=== PATIENT | female | born 1965 | race Caucasian/White ===

== ENCOUNTER 2016-11-17 01:12 | Observation (INO) | payer OTHER ==
[~2016-11-17] VITALS: Ht 157.5 cm; Wt 135.3 kg
[~2016-11-17 01:12] MED LIST: ALAVERT10 MG PO; ALBUTEROL2.5 MG/3 M IH; AMITRIPTYLINE H10 MG PO; ATROVENT 00.5 MG/2.5 IH; AVENTYL,PAMELOR50 MG PO; Antivert PO; BENADRYL25 MG PO; BENTYL10 MG PO; Bactrim,Septra DS 80 PO; Bentyl PO; CALAN80 MG PO; CELEBREX200 MG PO; CELEXA10 MG PO; CELEXA20 MG PO; CLARITIN10 M3 PO; DULERA 100 MCG/13 GM; DULERA 100 MCG/13 GM IH; ESZOPICLONE3 MG PO; FIORICET 50-301 EACH PO; Flagyl PO; IPRATROPIU0.2 MG/1 M IH; IRON325 M1 PO; IRON325 MG PO; LOTRISONE15 GM TP; MAXALT10 MG PO; METAXALONE800 MG PO; METOPROLOL TART25 MG PO; MONTELUKAST SOD10 MG PO; MOTRIN800 MG PO; NORCO 5/3251 TABLET PO; NORTRIPTYLINE H25 MG PO; NORTRIPTYLINE H50 MG PO; PANTOPRAZOLE SO40 MG; PATANASE30.5 GM; PATANASE30.5 GM BOTH NARES; PATANASE30.5 GM NS; PERCOCET 5/31 TABLET PO; POLYETHYLENE GL17 GM PO; PRAVACHOL40 MG PO; PRAVASTATIN SOD40 MG PO; PROTONIX40 MG PO; PROVENTIL,2.5 MG/3 M IH; PROVENTIL2.5 MG/3 M IH; RIZATRIPTAN10 MG; ROXICET 5-3251 EACH PO; SINGULAIR10 MG PO; STOOL SOFTENER100 MG PO; SUCRALFATE1 GM/10 ML PO; SYMBICORT60 INHALAT IH; Singulair PO; TIZANIDINE HCL2 M1 PO; TOPAMAX100 MG PO; TOPIRAMATE100 MG PO; TUMS500 MG PO; Topamax PO; VENTOLIN HFA18 GM IH; VERAPAMIL HCL240 MG PO; VERAPAMIL HCL80 MG PO; VITAMIN D31000 UNIT PO; WOMEN'S DAILY1 EAC2 PO; ZITHROMAX Z-PA250 MG PO; [UNRECOGNIZED DRUG - REMARK]; iron PO
[2016-11-17 02:49] LABS: HEMATOCRIT 42.4 % (36.0-46.0); MCH 29.2 PG (29.0-34.0); MCHC 32.1 G/DL (30.0-36.0); MEAN PLAT.VOLUME 9.1 uM^3 (9.5-12.4); PLATELET COUNT 280 K/uL (156-360); RBC DIS.WIDTH-CV 12.6 % (11.8-14.6); RBC DIS.WIDTH-SD 41.7 % (39-53); RED BLOOD COUNT 4.66 M/uL (3.80-5.20); WHITE BLOOD COUNT 8.2 K/uL (4.1-10.2)
[2016-11-17 03:10] LABS: CHLORIDE 109 mEq/L (99-109); POTASSIUM 4.1 mEq/L (3.7-5.4); SODIUM 144 mEq/L (136-147)
[2016-11-17 03:11] LABS: GLUCOSE 81 mg/dL (70-99)
[2016-11-17 03:13] LABS: ANION GAP 12 MEQ/L (2-14); TROP-I INTERPRETATION NEGATIVE; TROPONIN-I < 0.01 ng/mL (0.0-0.30)
[2016-11-17 03:15] LABS: GFR ESTIMATE (CALCULATED) > 59 mL/min/
[2016-11-17 03:16] LABS: UREA NITROGEN (BUN) 16 mg/dL (9-23)
[2016-11-17 04:45] LABS: D-DIMER ELISA 0.38 mg/L FEU (< 0.57)
[2016-11-17 07:36] VITALS: BP 127/83
[2016-11-17 08:30] LABS: Estimated Average Glucose 114 mg/dL (70-123); HEMOGLOBIN A1c (GLYCOHEMOGLOB) 5.6 % HGB (Below 5.7)
[2016-11-17 09:41] LABS: TROP-I INTERPRETATION NEGATIVE; TROPONIN-I < 0.01 ng/mL (0.0-0.30)
[2016-11-17 11:22] VITALS: BP 113/68
[2016-11-17] MEDS ORDERED: LO-DOSE ASPIRIN81 M2 PO (15:03)
[2016-11-17 15:58] LABS: TROP-I INTERPRETATION NEGATIVE; TROPONIN-I < 0.01 ng/mL (0.0-0.30)
[2016-11-17 16:00] VITALS: BP 152/82
== END 2016-11-17 16:20 | disposition home or self-care (01) ==
LOC: EME 01:12 → EDOF 06:12 → 5WEST 07:26
PROVIDERS: Internal Medicine; Nurse Practitioner Family
DX: R07.89 Other chest pain (principal); I10 Essential (primary) hypertension; J45.909 Unspecified asthma, uncomplicated; G47.33 Obstructive sleep apnea (adult) (pediatric); Z68.43 Body mass index [BMI] 50.0-59.9, adult; E66.01 Morbid (severe) obesity due to excess calories; E78.5 Hyperlipidemia, unspecified
CPT/HCPCS: 71020; 80048; 83036; 84439; 84443; 84484; 85027; 85379; 93005; 99281; 99284; G0378

== ENCOUNTER 2016-11-19 19:47 | Observation (INO) | payer OTHER ==
[~2016-11-19] VITALS: Ht 157.5 cm; Wt 134.1 kg
[~2016-11-19 19:47] MED LIST changes: +LO-DOSE ASPIRIN81 M2 PO
[2016-11-19 20:06] LABS: HEMATOCRIT 42.9 % (36.0-46.0); MCH 29.5 PG (29.0-34.0); MCHC 32.6 G/DL (30.0-36.0); MCV 90.3 FL (83-99); MEAN PLAT.VOLUME 9.1 uM^3 (9.5-12.4); PLATELET COUNT 262 K/uL (156-360); RBC DIS.WIDTH-CV 12.3 % (11.8-14.6); RBC DIS.WIDTH-SD 40.6 % (39-53); RED BLOOD COUNT 4.75 M/uL (3.80-5.20)
[2016-11-19 20:17] LABS: CHLORIDE 109 mEq/L (99-109); POTASSIUM 3.9 mEq/L (3.7-5.4); SODIUM 140 mEq/L (136-147)
[2016-11-19 20:20] LABS: ANION GAP 12 MEQ/L (2-14)
[2016-11-19 20:23] LABS: GFR ESTIMATE (CALCULATED) > 59 mL/min/
[2016-11-19 20:24] LABS: GLUCOSE 122 mg/dL (70-99); UREA NITROGEN (BUN) 11 mg/dL (9-23)
[2016-11-19 20:27] LABS: TROP-I INTERPRETATION NEGATIVE; TROPONIN-I < 0.01 ng/mL (0.0-0.30)
[2016-11-20] MEDS ORDERED: ZYRTEC10 M3 PO (01:07)
[2016-11-20] MEDS ORDERED: ERGOCALCIF50000 UNIT PO (01:09)
[2016-11-20] MEDS ORDERED: EPIPEN ADU0.3 MG/0.3 IM (01:10)
[2016-11-20] MEDS ORDERED: AZELASTINE137 MCG/0. BOTH NARES (01:10)
[2016-11-20] MEDS ORDERED: BREO ELLIPTA I1 EACH IH (01:10)
[2016-11-20 02:33] VITALS: BP 133/75
[2016-11-20 03:42] LABS: HEMATOCRIT 41.3 % (36.0-46.0); MCH 29.3 PG (29.0-34.0); MCHC 32.4 G/DL (30.0-36.0); MCV 90.2 FL (83-99); MEAN PLAT.VOLUME 9.3 uM^3 (9.5-12.4); PLATELET COUNT 260 K/uL (156-360); RBC DIS.WIDTH-CV 12.4 % (11.8-14.6); RED BLOOD COUNT 4.58 M/uL (3.80-5.20); WHITE BLOOD COUNT 7.7 K/uL (4.1-10.2)
[2016-11-20 03:53] LABS: CHLORIDE 111 mEq/L (99-109); POTASSIUM 4.1 mEq/L (3.7-5.4); SODIUM 143 mEq/L (136-147)
[2016-11-20 03:55] LABS: GLUCOSE 122 mg/dL (70-99)
[2016-11-20 03:57] LABS: ANION GAP 11 MEQ/L (2-14); TOTAL BILIRUBIN 0.3 mg/dL (0.0-1.0)
[2016-11-20 03:59] LABS: ALKALINE PHOSPHATASE 81 IU/L (3-129); GFR ESTIMATE (CALCULATED) 55 mL/min/
[2016-11-20 04:00] LABS: UREA NITROGEN (BUN) 15 mg/dL (9-23)
[2016-11-20 04:05] LABS: TROP-I INTERPRETATION NEGATIVE; TROPONIN-I < 0.01 ng/mL (0.0-0.30)
[2016-11-20 04:40] VITALS: BP 147/81
[2016-11-20 07:30] VITALS: BP 122/87
[2016-11-20 09:37] LABS: TROP-I INTERPRETATION NEGATIVE; TROPONIN-I < 0.01 ng/mL (0.0-0.30)
[2016-11-20 11:56] VITALS: BP 123/79
[2016-11-20 18:06] LABS: HDL CHOLESTEROL 46 MG/DL (Desirable>=50); LDL CHOLESTEROL 87 mg/dL (Desirable<100); NON-HDL CHOLESTEROL 131 mg/dL (Desirable<160); TOTAL CHOLESTEROL 177 mg/dL (Desirable<200); TRIGLYCERIDES 218 MG/DL (Normal: <150)
[2016-11-20 18:23] LABS: Estimated Average Glucose 114 mg/dL (70-123); HEMOGLOBIN A1c (GLYCOHEMOGLOB) 5.6 % HGB (Below 5.7)
== END 2016-11-20 18:45 | disposition home or self-care (01) ==
LOC: EME → EDBD 19:47 → EME 19:47 → EDOF 11-20 01:17 → 5WEST 11-20 02:19
PROVIDERS: Internal Medicine
DX: G45.9 Transient cerebral ischemic attack, unspecified (principal); R07.9 Chest pain, unspecified; G43.909 Migraine, unspecified, not intractable, without status migrainosus; G47.33 Obstructive sleep apnea (adult) (pediatric); I10 Essential (primary) hypertension; E66.9 Obesity, unspecified; J45.909 Unspecified asthma, uncomplicated; F32.9 Major depressive disorder, single episode, unspecified
CPT/HCPCS: 70450; 70551; 71020; 80048; 80053; 80061; 83036; 84484; 85027; 93005; 93880; 94640; 94640 76; 99202; 99281; 99285; G0378; J1200; J1644; J1885; J7030

== ENCOUNTER 2016-12-10 20:47 | Emergency (ER) | payer OTHER ==
[~2016-12-10] VITALS: Ht 172.7 cm; Wt 133.6 kg
[~2016-12-10 20:47] MED LIST changes: +AZELASTINE137 MCG/0. BOTH NARES; +BREO ELLIPTA I1 EACH IH; +EPIPEN ADU0.3 MG/0.3 IM; +ERGOCALCIF50000 UNIT PO; +ZYRTEC10 M3 PO
[2016-12-10 21:31] LABS: HEMATOCRIT 40.6 % (36.0-46.0); MCH 29.6 PG (29.0-34.0); MCV 89.6 FL (83-99); MEAN PLAT.VOLUME 9.7 uM^3 (9.5-12.4); PLATELET COUNT 251 K/uL (156-360); RBC DIS.WIDTH-CV 12.7 % (11.8-14.6); RBC DIS.WIDTH-SD 41.8 % (39-53); RED BLOOD COUNT 4.53 M/uL (3.80-5.20); WHITE BLOOD COUNT 6.4 K/uL (4.1-10.2)
[2016-12-10 21:48] LABS: CHLORIDE 108 mEq/L (99-109); SODIUM 140 mEq/L (136-147)
[2016-12-10 21:49] LABS: GLUCOSE 107 mg/dL (70-99)
[2016-12-10 21:51] LABS: ANION GAP 10 MEQ/L (2-14)
[2016-12-10 21:53] LABS: GFR ESTIMATE (CALCULATED) > 59 mL/min/
[2016-12-10 21:54] LABS: UREA NITROGEN (BUN) 14 mg/dL (9-23)
[2016-12-10 21:57] LABS: TROP-I INTERPRETATION NEGATIVE; TROPONIN-I < 0.01 ng/mL (0.0-0.30)
[2016-12-10 23:53] VITALS: BP 110/85
== END 2016-12-10 23:54 | disposition home or self-care (01) ==
LOC: EME 20:47 → RME 20:47
DX: R42 Dizziness and giddiness (principal); R53.83 Other fatigue; I10 Essential (primary) hypertension; J45.909 Unspecified asthma, uncomplicated; Z86.14 Personal history of Methicillin resistant Staphylococcus aureus infection
CPT/HCPCS: 71020; 80048; 84484; 85027; 93005; 99281; 99284

== ENCOUNTER 2016-12-15 23:50 | Emergency (ER) | payer OTHER ==
[~2016-12-15] VITALS: Ht 157.5 cm; Wt 137.3 kg
[2016-12-16 00:47] LABS: MCHC 32.5 G/DL (30.0-36.0); MCV 89.3 FL (83-99); MEAN PLAT.VOLUME 9.3 uM^3 (9.5-12.4); PLATELET COUNT 236 K/uL (156-360); RBC DIS.WIDTH-CV 12.5 % (11.8-14.6); RBC DIS.WIDTH-SD 40.8 % (39-53); RED BLOOD COUNT 4.48 M/uL (3.80-5.20); WHITE BLOOD COUNT 6.1 K/uL (4.1-10.2)
[2016-12-16 00:57] LABS: CHLORIDE 107 mEq/L (99-109); POTASSIUM 4.4 mEq/L (3.7-5.4); SODIUM 140 mEq/L (136-147)
[2016-12-16 00:59] LABS: INTER. NORMALIZED RATIO 1.1; PROTHROMBIN TIME 11.1 (9.2-11.2); PTT 26.6 (25-32)
[2016-12-16 01:00] LABS: GLUCOSE 100 mg/dL (70-99)
[2016-12-16 01:01] LABS: ANION GAP 9 MEQ/L (2-14)
[2016-12-16 01:02] LABS: TOTAL BILIRUBIN 0.6 mg/dL (0.0-1.0)
[2016-12-16 01:03] LABS: ALKALINE PHOSPHATASE 82 IU/L (3-129); GFR ESTIMATE (CALCULATED) > 59 mL/min/
[2016-12-16 01:04] LABS: UREA NITROGEN (BUN) 16 mg/dL (9-23)
[2016-12-16 01:07] LABS: LIPASE 24 U/L (1.0-51.0)
[2016-12-16] MEDS ORDERED: BENTYL20 MG PO (02:33)
[2016-12-16] MEDS ORDERED: PROTONIX40 MG PO (02:33)
[2016-12-16 02:50] VITALS: BP 119/62
== END 2016-12-16 02:51 | disposition home or self-care (01) ==
LOC: EME 23:50
PROVIDERS: Emergency Medicine
DX: K62.5 Hemorrhage of anus and rectum (principal); K59.00 Constipation, unspecified; R19.03 Right lower quadrant abdominal swelling, mass and lump; J45.909 Unspecified asthma, uncomplicated; I10 Essential (primary) hypertension; Z90.710 Acquired absence of both cervix and uterus; Z86.14 Personal history of Methicillin resistant Staphylococcus aureus infection; Z88.5 Allergy status to narcotic agent; Z88.1 Allergy status to other antibiotic agents; Z88.8 Allergy status to other drugs, medicaments and biological substances; Z91.018 Allergy to other foods; Z91.048 Other nonmedicinal substance allergy status
CPT/HCPCS: 74177; 80053; 83690; 85027; 85610; 85730; 99281; 99285; C9113; J7030

== ENCOUNTER 2017-04-12 22:33 | Emergency (ER) | payer OTHER ==
[~2017-04-12] VITALS: Ht 160 cm; Wt 133.9 kg
[~2017-04-12 22:33] MED LIST changes: +BENTYL20 MG PO
[2017-04-12] MEDS ORDERED: MOTRIN800 MG PO (22:53)
[2017-04-12 23:03] VITALS: BP 151/108
== END 2017-04-12 23:04 | disposition home or self-care (01) ==
LOC: EME 22:33
DX: S50.861A Insect bite (nonvenomous) of right forearm, initial encounter (principal); W57.XXXA Bitten or stung by nonvenomous insect and other nonvenomous arthropods, initial encounter; Z88.5 Allergy status to narcotic agent; Z88.1 Allergy status to other antibiotic agents
CPT/HCPCS: 99281; 99283

== ENCOUNTER 2017-05-02 16:00 | Emergency (ER) | payer OTHER ==
[~2017-05-02] VITALS: Ht 160 cm; Wt 135.5 kg
[2017-05-02 18:27] VITALS: BP 129/88
== END 2017-05-02 18:28 | disposition home or self-care (01) ==
LOC: EME 16:00
DX: J44.1 Chronic obstructive pulmonary disease with (acute) exacerbation (principal); K21.9 Gastro-esophageal reflux disease without esophagitis; I10 Essential (primary) hypertension; F17.200 Nicotine dependence, unspecified, uncomplicated
CPT/HCPCS: 94640; 99281; 99284; J7644

== ENCOUNTER 2018-01-12 20:38 | Emergency (ER) | payer OTHER ==
[~2018-01-12] VITALS: Ht 162.6 cm; Wt 137.5 kg
[2018-01-12] MEDS ORDERED: MOBIC7.5 MG PO (22:49)
[2018-01-13] VITALS: BP 128/77
== END 2018-01-13 00:42 | disposition home or self-care (01) ==
LOC: EME 20:38
DX: M17.11 Unilateral primary osteoarthritis, right knee (principal); M25.761 Osteophyte, right knee; E66.9 Obesity, unspecified; Z68.43 Body mass index [BMI] 50.0-59.9, adult; Z88.1 Allergy status to other antibiotic agents; Z88.5 Allergy status to narcotic agent; Z91.09 Other allergy status, other than to drugs and biological substances; Z91.018 Allergy to other foods
CPT/HCPCS: 73564; 99281; 99283